=== PATIENT | female | born 1950 | race African-American/Black ===

== ENCOUNTER 2019-01-17 13:07 | Emergency (ER) | payer MEDICAID, MEDICARE ==
[~2019-01-17] VITALS: Ht 170.2 cm; Wt 69.0 kg
[2019-01-17] MEDS ORDERED: IBUPROFEN 600MG TABLET PO ONE (14:00)
[2019-01-17 15:50] VITALS: BP 170/69
== END 2019-01-17 16:30 | disposition home or self-care (01) ==
LOC: ER 13:07
DX: M77.32 Calcaneal spur, left foot (principal); I10 Essential (primary) hypertension
CPT/HCPCS: 73630; 99283